=== PATIENT | male | born 1990 ===

== ENCOUNTER 2023-12-15 20:03 | Emergency (ER) | payer SELFPAY ==
[~2023-12-15] VITALS: Ht 175.3 cm; Wt 82.7 kg
[2023-12-15 20:08] VITALS: BP 151/107; PULSE 99; RESP 16; TEMP 97.7
== END 2023-12-16 01:24 | disposition left against medical advice (07) ==
LOC: EMS 20:03
DX: R10.12 Left upper quadrant pain (principal); R10.11 Right upper quadrant pain; Z53.21 Procedure and treatment not carried out due to patient leaving prior to being seen by health care provider